=== PATIENT | female | born 1965 | race Caucasian/White ===

== ENCOUNTER → 2020-03-17 14:10 | Outpatient (BNVA) | payer OTHER, SELFPAY | PROVIDERS: PCP Family Medicine; Visit Provider Internal Medicine Rheumatology | DX: M25.50 Pain in unspecified joint (principal); M79.7 Fibromyalgia; Z79.899 Other long term (current) drug therapy; R76.8 Other specified abnormal immunological findings in serum; G62.9 Polyneuropathy, unspecified; E11.9 Type 2 diabetes mellitus without complications; E65 Localized adiposity; Z96.41 Presence of insulin pump (external) (internal); M54.5 Low back pain; G89.29 Other chronic pain; Z79.4 Long term (current) use of insulin | CPT/HCPCS: 96372; 99204; J1885 ==